=== PATIENT | male | born 1960 | race Hispanic/Latino ===

== ENCOUNTER 2017-05-16 18:19 | Emergency (ER) | payer OTHER, BC ==
[2017-05-16 18:19] VITALS: BMI 32.1
[2017-05-16 18:57] VITALS: RESP 18; TEMP 98.5
--- NOTE | 2017-05-16 19:31 | ED PDOC ---
Arrival/HPI - General Time Seen by Provider: 05/16/17 18:51 Historian: Patient, Family - History of Present Illness Narrative History of Present Illness (Text): 05/16/17 19:00 Jameson Zacarias is a 57 year old male, whose past medical history includes hypertension, hypercholesterolemia, GERD, prostatectomy due to cancer and abdominal hernia, presents to the emergency room complaining of neck, left anterior shoulder, and lower back pain after experiencing a fall at his job. Patient reports that while he was walking he fell through a wooden deck down to his waist. He notes that while his right leg went down the deck, his left leg remained up and got stuck above the deck. Patient denies chest pain, shortness of breath, dizziness, lightheadedness, or palpitation. Patient did not hit their head. Patient denies any loss of consciousness, headache, fever, chills, cough, nausea, vomiting, diarrhea, visual changes, or other complaints. PMD: Dr. Angel Time/Duration: Prior to Arrival (trauma fall) Symptom Onset: Sudden Symptom Course: Unchanged Quality: Other (neck stiffness) Activities at Onset: Light (work) Modifying Factors (Text): None Context: Work Associated Symptoms (Text): lower back pain and left leg pain Past Medical History - Provider Review Nursing Documentation Reviewed: Yes - Infectious Disease Hx of Infectious Diseases: None - Cardiac Hx Hypertension: Yes - Psychiatric Hx Substance Use: No - Surgical History Other/Comment: prostate surgery 3 weeks ago(laparoscopic) - Anesthesia Hx Anesthesia Reactions: No Hx Malignant Hyperthermia: No - Suicidal Assessment Feels Threatened In Home Enviroment: No Family/Social History - Physician Review Nursing Documentation Reviewed: Yes Family/Social History: Unknown Family HX Smoking Status: Never Smoked Hx Alcohol Use: Yes Hx Substance Use: No Hx Substance Use Treatment: No Allergies/Home Meds Allergies/Adverse Reactions: Allergies No Known Allergies Allergy (Verified 10/26/15 15:07) Home Medications: Home Meds Medication Instructions Recorded Confirmed Amlodipine Besylate/Benazepril 1 cap PO DAILY 05/16/17 05/16/17 [Lotrel 10-20 mg Capsule] Esomeprazole Magnesium [Nexium] 40 mg PO DAILY 05/16/17 05/16/17 Ezetimibe [Zetia] 10 mg PO DAILY 05/16/17 05/16/17 Febuxostat [Uloric] 40 mg PO DAILY 05/16/17 05/16/17 LORazepam [Ativan] 0.5 mg PO HS 05/16/17 05/16/17 Metoprolol Succinate [Toprol XL] 50 mg PO DAILY 05/16/17 05/16/17 Review of Systems - Physician Review All systems were reviewed & negative as marked: Yes - Review of Systems Constitutional: absent: Fevers Respiratory: absent: SOB Cardiovascular: absent: Chest Pain Musculoskeletal: Back Pain (lower back pain), Neck Pain, Other (anterior shoulder pain) Neurological: absent: Headache, Dizziness Physical Exam Vital Signs Temp Pulse Resp BP Pulse Ox 05/16/17 22:19 84 18 130/84 99 05/16/17 20:13 88 18 132/91 H 98 05/16/17 18:56 98.5 F 90 18 153/107 H 98 Temperature: Afebrile Blood Pressure: Hypertensive Pulse: Regular Respiratory Rate: Normal Appearance: Positive for: Well-Appearing, Non-Toxic, Comfortable Pain Distress: None Mental Status: Positive for: Alert and Oriented X 3 - Systems Exam Head: Present: Atraumatic, Normocephalic Pupils: Present: PERRL Extroacular Muscles: Present: EOMI Conjunctiva: Present: Normal Mouth: Present: Moist Mucous Membranes Neck: Present: Normal Range of Motion, Paraspinal Tenderness (left neck ) Respiratory/Chest: Present: Clear to Auscultation, Good Air Exchange. No: Respiratory Distress, Accessory Muscle Use Cardiovascular: Present: Regular Rate and Rhythm, Normal S1, S2. No: Murmurs Abdomen: Present: Normal Bowel Sounds. No: Tenderness, Distention, Peritoneal Signs Back: Present: Midline Tenderness (mid thoracic and mid lower back tenderness) Upper Extremity: Present: Normal Inspection, Other (left anterior shoulder). No : Cyanosis, Edema Lower Extremity: Present: Normal Inspection, Tenderness (interior left leg thigh ). No: Edema Neurological: Present: GCS=15, CN II-XII Intact, Speech Normal Skin: Present: Warm, Dry, Normal Color. No: Rashes Psychiatric: Present: Alert, Oriented x 3, Normal Insight, Normal Concentration Medical Decision Making ED Course and Treatment: 05/16/17 18:50 Impression: 57 year old male with neck, shoulder, and back pain after trauma. Plan: -- EKG -- Cervical X-ray -- Thoracic X-ray -- Lumbar X-ray -- Reassess and disposition Progress Notes: EKG: Ordered, reviewed, and independently interpreted the EKG. Rate : 87 BPM Rhythm : NSR Interpretation : No ST-segment elevations or depressions, no T-wave inversions, normal intervals. Comparison : No previous EKG for comparison. Xrays reviewed with no fracture. Pain controlled with Motrin. CO level 3% on VBG. Oxy sat normal. Oxygen given. Patient comfortable with no distress. No trouble breathing. No weakness. Does not feel confused. Patient is a senior ux designer. He will f/u with his primary care doctor. - Lab Interpretations Lab Results: Lab Results 05/16/17 22:10: pO2 64 H, ABG Carboxyhemoglobin 3.1 H, POC ABG HHb (Measured) 5.1 H, ABG Methemoglobin 0.6, VBG pH 7.40, VBG pCO2 43.0, VBG HCO3 26.6, VBG O2 Sat (Calc) 94.7 H, VBG Base Excess 1.4, VBG Hgb O2 Saturation 91.1 L, Hemoglobin 14.1 - RAD Interpretation Radiology Orders: 05/16/17 18:57 CERVICAL SPINE >18YR W/OBLIQUE [RAD] Stat DORSAL (THORACIC) SPINE [RAD] Stat LS SPINE WITH OBL > 18 YRS OLD [RAD] Stat - EKG Interpretation Interpreted by ED Physician: Yes Type: 12 lead EKG - Medication Orders Current Medication Orders: Discontinued Medications Ibuprofen (Motrin Tab) 800 mg PO STAT STA Stop: 05/16/17 20:09 Last Admin: 05/16/17 20:10 Dose: 800 mg Ibuprofen (Motrin Tab) Confirm Administered Dose 800 mg .ROUTE .STK-MED ONE Stop: 05/16/17 20:11 Last Admin: 05/16/17 20:14 Dose: - Scribe Statement The provider has reviewed the documentation as recorded by the Scribe 05/16/2017 Lou Kelly Provider Scribe Attestation: All medical record entries made by the Scribe were at my direction and personally dictated by me. I have reviewed the chart and agree that the record accurately reflects my personal performance of the history, physical exam, medical decision making, and the department course for this patient. I have also personally directed, reviewed, and agree with the discharge instructions and disposition. Disposition/Present on Arrival - Present on Arrival Any Indicators Present on Arrival: No History of DVT/PE: No History of Uncontrolled Diabetes: No Urinary Catheter: No History Surgical Site Infection Following: None - Disposition Have Diagnosis and Disposition been Completed?: No Diagnosis: Back pain, Neck pain, Carbon monoxide exposure Disposition: HOME/ ROUTINE Disposition Time: 23:19 Patient Plan: Discharge Condition: IMPROVED Discharge Instructions (ExitCare): Cervical Strain (DC), Acute Low Back Pain ( ED) Additional Instructions: Mr Zacarias, thank you for letting us take care of you today. Your provider was Dr. Clancy. You were treated for Back Pain, Neck Strain after a fall. The emergency medical care you received today was directed at your acute symptoms. If you were prescribed any medication, please fill it and take as directed. It may take several days for your symptoms to resolve. Return to the Emergency Department if your symptoms worsen, do not improve, or if you have any other problems. Please contact your doctor or call one of the physicians/clinics you have been referred to that are listed on the Patient Visit Information form that is included in your discharge packet. Bring any paperwork you were given at discharge with you along with any medications you are taking to your follow up visit. Our treatment cannot replace ongoing medical care by a primary care provider (PCP) outside of the emergency department. Thank you for allowing the [facility] team to be part of your care today. If you had an X-Ray or CT scan: A Radiologist will review the ED reading if any change in treatment is needed we will contact you. If you had a blood, urine, or wound culture: It will take several days for the results, if any change in treatment is needed we will contact you. If you had an STI test: It will take 48 hours for the results. Please call after 1 week if you have not heard back. Prescriptions: Ibuprofen [Motrin] 600 mg PO Q6 PRN #30 tab PRN Reason: Pain, Moderate (4-7) Referrals: Ze Angel MD [Primary Care Provider] - Follow up with primary Forms: [employer] (Beninese)
[2017-05-16 22:20] VITALS: BP 130/84; PULSE 84; O2SAT 99
[2017-05-16 22:31] LABS: BLOOD GAS HEMOGLOBIN 14.1 g/dL (11.7-17.4); CARBOXYHEMOGLOBIN 3.1 % (0.5-1.5); HHB 5.1 % (0-5); METHEMOGLOBIN 0.6 % (0.0-3.0); VENOUS BLOOD GAS BASE EXCESS 1.4 mmol/L (0.0-2.0); VENOUS BLOOD HGB O2 SAT 91.1 % (95.0-98.0)
--- NOTE | 2017-05-17 07:48 | RAD ---
HISTORY: fall r/ofx COMPARISON: Chest CT 02/02/2016. FINDINGS: BONES: Alignment maintained. No definite fracture identified. DISC SPACES: Moderate multilevel thoracic spondylosis is again appreciated, potentially increased in the interval. SOFT TISSUES: Normal. OTHER FINDINGS: None. IMPRESSION: No definite fracture or spondylolisthesis. Moderate multilevel thoracic spondylosis is identified and may have slightly increased in the interval. S
--- NOTE | 2017-05-17 07:53 | RAD ---
PROCEDURE: Radiographs of the Lumbar Spine. HISTORY: fall r/o fx COMPARISON: Lumbar spine MRI 12/05/2012. FINDINGS: BONES: Normal alignment. Lordotic curvature is well preserved. No listhesis. No fracture. DISC SPACES: Advanced multilevel lumbar spondylosis appreciated, increased in the interval. Further disc height loss is appreciate L4-5 which now appears severe. OTHER FINDINGS: None. IMPRESSION: Increased multilevel lumbar spondylosis without interval fracture or spondylolisthesis appreciable. Degenerate disease appears particularly worsened at the inferior lumbar spine in particular.
--- NOTE | 2017-05-17 07:57 | RAD ---
PROCEDURE: Cervical Spine Radiographs. HISTORY: Pain. COMPARISON: Cervical spine CT 12/06/2014. FINDINGS: BONES: Cervical curvature appears straightened rather than reversed, with T1 obscured by the shoulders. No definitive fractures appreciated down to the C7 level with multilevel mid to inferior cervical spondylosis again identified. Degenerative neural foraminal stenoses are moderate bilateral C6-7 level and mild at the bilateral C4-5 level. DISC SPACES: Multilevel cervical spondylosis as above. . SOFT TISSUES: Normal. No prevertebral soft tissue swelling. OTHER FINDINGS: None. IMPRESSION: Straightening rather than reversal of the cervical curvature in the interval. No fractures identified down to the C7 level with T1 not identified due to obscured by shoulders. CT be useful for further characterization or possible Swimmer's view to attempt to better define the cervicothoracic junction. Degenerative neural foraminal stenoses are identified at C4-5 and C6-7 bilaterally. S
--- NOTE | 2017-05-17 09:55 | CARD ---
APPROVED REPORT EKG Measurement Heart [id number] <Conclusion> Normal sinus rhythm Normal ECG No change
== END 2017-05-16 23:25 | disposition home or self-care (01) ==
LOC: ED 18:19
DX: M54.2 Cervicalgia (principal); M54.5 Low back pain; T58.91XA Toxic effect of carbon monoxide from unspecified source, accidental (unintentional), initial encounter; Y92.89 Other specified places as the place of occurrence of the external cause

== ENCOUNTER 2018-04-05 03:24 | Emergency (ER) | payer BC, OTHER ==
[2018-04-05 03:24] VITALS: BMI 32.1
[2018-04-05 03:40] VITALS: TEMP 97.1
--- NOTE | 2018-04-05 04:24 | ED PDOC ---
Arrival/HPI - General Chief Complaint: Back Pain Time Seen by Provider: 04/05/18 03:40 Historian: Patient - History of Present Illness Narrative History of Present Illness (Text): 04/05/18 03:40 Jameson Zacarias is a 58 year old male who presents to the Emergency department complaining of back pain. 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 Patient states he was wearing full protective gear including a heavy oxygen gas tank. Patient reports right 2nd toe pain status post stubbing his foot while at work. Patient denies any chest pain, shortness of breath, abdominal pain, vomiting, neck pain, headache, dizziness, or any other complaints. Time/Duration: Other (tonight) Symptom Onset: Gradual Symptom Course: Unchanged Activities at Onset: Significant (Exertion) Context: Home Past Medical History - Provider Review Nursing Documentation Reviewed: Yes - Infectious Disease Hx of Infectious Diseases: None - Cardiac Hx Hypertension: Yes - Musculoskeletal/Rheumatological Hx Gout: Yes - Psychiatric Hx Anxiety: Yes Hx Depression: No Hx Emotional Abuse: No Hx Physical Abuse: No Hx Substance Use: No - Surgical History Other/Comment: prostate surgery 3 weeks ago(laparoscopic) - Anesthesia Hx Anesthesia Reactions: No Hx Malignant Hyperthermia: No - Suicidal Assessment Feels Threatened In Home Enviroment: No Family/Social History - Physician Review Nursing Documentation Reviewed: Yes Family/Social History: No Known Family HX, Unknown Family HX Smoking Status: Never Smoked Hx Alcohol Use: Yes Hx Substance Use: No Hx Substance Use Treatment: No Allergies/Home Meds Allergies/Adverse Reactions: Allergies No Known Allergies Allergy (Verified 04/05/18 03:29) Home Medications: Home Meds Medication Instructions Recorded Confirmed Amlodipine Besylate/Benazepril 1 cap PO DAILY 05/16/17 04/05/18 [Lotrel 10-20 mg Capsule] Esomeprazole Magnesium [Nexium] 40 mg PO DAILY 05/16/17 04/05/18 Ezetimibe [Zetia] 10 mg PO DAILY 05/16/17 04/05/18 Febuxostat [Uloric] 40 mg PO DAILY 05/16/17 04/05/18 LORazepam [Ativan] 0.5 mg PO HS 05/16/17 04/05/18 Metoprolol Succinate XL [Toprol XL] 50 mg PO DAILY 05/16/17 04/05/18 Review of Systems - Physician Review All systems were reviewed & negative as marked: Yes - Review of Systems Constitutional: Normal. absent: Fevers Eyes: Normal ENT: Normal Respiratory: Normal. absent: SOB, Cough Cardiovascular: Normal. absent: Chest Pain Gastrointestinal: Normal. absent: Abdominal Pain, Diarrhea, Nausea, Vomiting Genitourinary Male: Normal. absent: Dysuria, Frequency, Hematuria, Urinary Output Changes Musculoskeletal: Back Pain, Other (+right toe pain). absent: Neck Pain Skin: Normal. absent: Rash Neurological: Normal. absent: Headache, Dizziness Endocrine: Normal Hemo/Lymphatic: Normal Psychiatric: Normal Physical Exam Vital Signs Reviewed: Yes Vital Signs Temp Pulse Resp BP Pulse Ox 04/05/18 05:10 90 18 134/82 100 04/05/18 03:39 97.1 F L 95 H 20 144/94 H 96 Temperature: Afebrile Blood Pressure: Normal Pulse: Regular Respiratory Rate: Normal Appearance: Positive for: Well-Appearing, Non-Toxic, Comfortable Pain Distress: None Mental Status: Positive for: Alert and Oriented X 3 - Systems Exam Head: Present: Atraumatic, Normocephalic Pupils: Present: PERRL Extroacular Muscles: Present: EOMI Conjunctiva: Present: Normal Mouth: Present: Moist Mucous Membranes Neck: Present: Normal Range of Motion Respiratory/Chest: Present: Clear to Auscultation, Good Air Exchange. No: Respiratory Distress, Accessory Muscle Use Cardiovascular: Present: Regular Rate and Rhythm, Normal S1, S2. No: Murmurs Abdomen: No: Tenderness, Distention, Peritoneal Signs Back: Present: Paraspinal Tenderness (Thoracic paravertebral tenderness) Upper Extremity: Present: Normal Inspection. No: Cyanosis, Edema Lower Extremity: Present: NORMAL PULSES, Normal ROM, Neurovascularly Intact, Capillary Refill < 2 s, Other (Bruising to right 2nd digit). No: Edema, Tenderness, Swelling, Erythema, Deformity, Temperature Abnormalties Neurological: Present: GCS=15, CN II-XII Intact, Speech Normal Skin: Present: Warm, Dry, Normal Color. No: Rashes Psychiatric: Present: Alert, Oriented x 3, Normal Insight, Normal Concentration Medical Decision Making ED Course and Treatment: 04/05/18 03:40 Impression: 58 year old male complaining of upper back pain and right toe pain tonight. Differential Diagnosis included but are not limited to: sprain vs. strain vs. musculoskeletal pain vs. contusion Plan: -- XR Right Foot -- Toradol -- Reassess and disposition Progress Notes: 04/05/18 05:10 Reviewed radiology, XR Right Foot negative for any acute fracture. On re-evaluation, patient feels better and is in no acute distress. I have discussed the results and plan with the patient, who expresses understanding. Patient in agreement with plan to be discharged home. Patient is stable for discharge. Patient was instructed to follow up with physician or return if symptoms worsen or new concerning symptoms arise. - RAD Interpretation Radiology Orders: 04/05/18 03:40 FOOT RIGHT 3 VIEWS ROUTINE [RAD] Stat - Medication Orders Current Medication Orders: Discontinued Medications Ketorolac Tromethamine (Toradol) 30 mg IM ONCE ONE Stop: 04/05/18 03:41 Last Admin: 04/05/18 03:58 Dose: 30 mg MAR Pain Assessment Document 04/05/18 03:58 AD (Rec: 04/05/18 03:58 AD [id number]) Pain Reassessment Is this a pain reassessment? No Presence of Pain Presence of Pain Yes Pain Scale Used Pain Scale Used Numeric Description Intensity of Pain at present 8 Pain Behavior Facial Grimacing IM Administration Charges Document 04/05/18 03:58 AD (Rec: 04/05/18 03:58 AD [id number]) Injection Site MAR Injection Site Right Deltoid Charges for Administration # of IM Administrations 1 - Scribe Statement The provider has reviewed the documentation as recorded by the Daraibartem Curtis Provider Scribe Attestation: All medical record entries made by the Scribe were at my direction and personally dictated by me. I have reviewed the chart and agree that the record accurately reflects my personal performance of the history, physical exam, medical decision making, and the department course for this patient. I have also personally directed, reviewed, and agree with the discharge instructions and disposition. Disposition/Present on Arrival - Present on Arrival Any Indicators Present on Arrival: No History of DVT/PE: No History of Uncontrolled Diabetes: No Urinary Catheter: No History of Decub. Ulcer: No History Surgical Site Infection Following: None - Disposition Have Diagnosis and Disposition been Completed?: Yes Diagnosis: Back pain, Toe contusion Disposition: HOME/ ROUTINE Disposition Time: 05:10 Condition: GOOD Discharge Instructions (ExitCare): Upper Back Pain, Toe Injury Referrals: Ze Angel MD [Primary Care Provider] - Follow up with primary Forms: [employer] (Icelandic)
[2018-04-05 06:11] VITALS: BP 134/82; PULSE 90; RESP 18; O2SAT 100
--- NOTE | 2018-04-05 10:33 | RAD ---
PROCEDURE: Right Foot Radiographs. HISTORY: trauma COMPARISON: None. FINDINGS: BONES: Normal. No fracture. JOINTS: Normal. SOFT TISSUES: Normal. OTHER FINDINGS: None. IMPRESSION: Normal right foot radiographs.
== END 2018-04-05 05:10 | disposition home or self-care (01) ==
LOC: ED 03:24
DX: S90.121A Contusion of right lesser toe(s) without damage to nail, initial encounter (principal); W22.8XXA Striking against or struck by other objects, initial encounter; Y92.89 Other specified places as the place of occurrence of the external cause; Y99.0 Civilian activity done for income or pay; M54.9 Dorsalgia, unspecified
CPT/HCPCS: 73630; 96372; 99282; J1885